=== PATIENT | female | born 1975 | race Caucasian/White ===

== ENCOUNTER → 2017-03-26 | Outpatient (CLI) | payer MEDICARE, MEDICAID ==
[~2017-03-26] MED LIST: ACCUNEB SOL3 ML/NEB IN; ACTOS 15MG TABL15 MG PO; ALBUTEROL-200 PUFFS/ IH; CETIRIZINE HCL10 MG PO; CIPRO 500MG TA500 MG PO; IRON TABLETS325 MG PO; MEDROL 4MG. DOSE4 MG PO; METFORMIN500 MG PO; MIGRAINE MED; PRILOSEC OTC20 MG PO; SEPTRA DS 800 M1 TAB PO; SIMVASTATIN40 MG PO; SINGULAIR10 MG PO; TRIAMCINOL15 GM/TUBE TP; TRICOR 145 MG145 MG PO; ZOFRAN4 MG PO
[2017-03-26 19:15] LABS: AMPHETAMINES/METAMPHETAMINES NEGATIVE ng/mL (<1000)
== END ==
LOC: LAB 17:37
PROVIDERS: Nurse Practitioner Family
DX: F41.9 Anxiety disorder, unspecified (principal); E11.9 Type 2 diabetes mellitus without complications; E78.5 Hyperlipidemia, unspecified; Z79.899 Other long term (current) drug therapy

== ENCOUNTER → 2017-09-04 | Outpatient (CLI) | payer MEDICARE, MEDICAID ==
[~2017-09-04] MED LIST changes: +BACTROBAN 2% C1 INCH EX
[2017-09-04 15:50] LABS: AMPHETAMINES/METAMPHETAMINES NEGATIVE ng/mL (<1000)
== END ==
LOC: LAB 14:34
PROVIDERS: Nurse Practitioner Family
DX: Z79.899 Other long term (current) drug therapy (principal)

== ENCOUNTER → 2017-10-03 | Outpatient (CLI) | payer MEDICARE, MEDICAID ==
[~2017-10-03] MED LIST changes: +ATORVASTATIN CA10 M1 PO; +CARVEDILOL6.25 M1 PO; +DIAZEPAM10 M1 PO; +METFORMIN HCL1000 MG PO; +NEXIUM40 MG PO
[2017-10-03 14:46] LABS: AMPHETAMINES/METAMPHETAMINES NEGATIVE ng/mL (<1000)
== END ==
LOC: LAB 13:17
PROVIDERS: Nurse Practitioner Family
DX: Z79.899 Other long term (current) drug therapy (principal)